=== PATIENT | female | born 1995 | race Caucasian/White ===

== ENCOUNTER 2022-06-29 19:34 | Inpatient (IN) | payer MEDICAID ==
[~2022-06-29] VITALS: Ht 162.6 cm; Wt 144.3 kg
[2022-06-29 20:11] LABS: GLUCOMETER DEV NAME(LOC) POC.BV
[2022-06-29] MEDS ORDERED: INFLUENZA VIRUS VACCINE QVS 2022-23 (6MO+)/PF 60 MCG/0.5 ML SYRINGE IM. ONE (20:30)
[2022-06-29] MEDS ORDERED: HydrOXYzine PAMOATE 50 MG CAPSULE PO PRN (20:30)
[2022-06-29] MEDS ORDERED: ZOLPIDEM TARTRATE 10 MG TABLET PO PRN (20:30)
[2022-06-29] MEDS ORDERED: PROMETHAZINE HCL 25 MG TABLET PO PRN (20:30)
[2022-06-29] MEDS ORDERED: ACETAMINOPHEN 325 MG TABLET PO PRN (20:30)
[2022-06-29] MEDS ORDERED: LOPERAMIDE HCL 2 MG CAPSULE PO PRN (20:30)
[2022-06-29] MEDS ORDERED: MAG HYDROX/AL HYDROX/SIMETH ES 30 ML SUSPENSION UDCUP PO PRN (20:30)
[2022-06-29] MEDS ORDERED: GuaiFENesin/D-METHORPHAN [SUGAR-FREE] 200-20MG/10 ML SYRUP UDCUP PO PRN (20:30)
[2022-06-29] MEDS ORDERED: TUBERCULIN, PURIFIED PROTEIN DERIVATIVE 5 TU/0.1 ML SYRINGE ID ONE (20:30)
[2022-06-29] MEDS ORDERED: OLANZapine 5 MG RAPDIS TABLET PO PRN (20:30)
[2022-06-29] MEDS ORDERED: MAGNESIUM HYDROXIDE SUSPENSION 30 ML UDCUP PO PRN (20:30)
[2022-06-29] MEDS ORDERED: PNEUMOCOCCAL VACCINE POLYVALENT 0.5 ML VIAL [PPSV23] IM. ONE (20:45)
[2022-06-29 20:57] VITALS: BP 125/87
[2022-06-29] MEDS ORDERED: MELATONIN 5 MG TABLET PO SCH (21:00)
[2022-06-29] MEDS ORDERED: OLANZapine 5 MG RAPDIS TABLET PO SCH (21:00)
[2022-06-29] MEDS: LORazepam 2 MG TABLET PO PRN (21:37)
[2022-06-29 23:26] VITALS: BP 113/60
[2022-06-30 07:33] LABS: BASOPHILS % (AUTO) 0.4 % (0.0-2.0); EOSINOPHILS % (AUTO) 3.6 % (1.0-6.0); HEMATOCRIT 38.2 % (36-46); HEMOGLOBIN 12.5 g/dL (12.0-16.0); LYMPHOCYTES # (AUTO) 2.7 K/uL (1.0-4.8); LYMPHOCYTES % (AUTO) 33.9 % (22.0-44.0); MEAN CORPUSCULAR HEMOGLOBIN 29.1 pg (26.0-34.0); MEAN CORPUSCULAR HGB CONC 32.8 G/dL (31.0-37.0); MEAN CORPUSCULAR VOLUME 89 fL (80-100); MONOCYTES # (AUTO) 0.5 K/uL (0.1-1.0); MONOCYTES % (AUTO) 6.7 % (2.0-9.0); NEUTROPHILS # (AUTO) 4.4 K/uL (1.8-7.7); NEUTROPHILS % (AUTO) 55.4 % (40.0-70.0); PLATELET COUNT (AUTO) 239 K/uL (150-450); RED BLOOD CELL COUNT(AUTO) 4.31 MIL/uL (4.00-5.20); RED CELL DISTRIBUTION WIDTH 14.2 % (11.5-14.5)
[2022-06-30 07:49] LABS: HEMOGLOBIN A1C 5.7 % (3.8-5.6)
[2022-06-30 07:53] LABS: ALANINE AMINOTRANSFERASE 39 U/L (12-78); ALBUMIN 3.6 g/dL (3.4-5.0); ALKALINE PHOSPHATASE 93 U/L (46-116); ANION GAP 10 mmol/L (8-16); ASPARTATE AMINOTRANSFERASE 23 U/L (15-37); BILIRUBIN,TOTAL 0.5 mg/dL (0.1-1.0); CALCIUM, TOTAL 9.1 mg/dL (8.8-10.5); CARBON DIOXIDE 26 mmol/L (22-29); CHLORIDE 108 mmol/L (98-107); CHOL/HDL RATIO 5.4 (3.9-5.7); CHOLESTEROL 163 mg/dL (131-200); CREATININE 0.68 mg/dL (0.60-1.30); FREE T4 (FREE THYROXINE) 1.14 ng/dL (0.76-1.46); GLUCOSE,RANDOM 79 mg/dL (70-110); HDL CHOLESTEROL 30 mg/dL (40-60); LDL CHOL (CALC.) 106 mg/dL (0-130); POTASSIUM 3.6 mmol/L (3.5-5.1); SODIUM SERUM 144 mmol/L (136-145); TOTAL PROTEIN, SERUM 7.3 g/dL (6.4-8.2); TRIGLYCERIDES 135 mg/dL (15-150); UREA NITROGEN, BLOOD 11 mg/dL (7-18)
[2022-06-30 07:56] LABS: GLOMERULAR FILTR. RATE CALC > 60 mL/min (>60)
[2022-06-30 08:46] VITALS: BP 134/79
[2022-06-30] MEDS ORDERED: FLUoxetine HCL 20 MG CAPSULE PO SCH (09:00)
[2022-06-30] MEDS: FOLIC ACID 1 MG TABLET PO SCH (09:05)
[2022-06-30] MEDS: MULTIVITAMINS WITH MINERALS, THERAPEUTIC TABLET PO SCH (09:05)
[2022-06-30] MEDS: NALTREXONE HCL 50 MG TABLET PO SCH (09:05)
[2022-06-30] MEDS: OMEGA-3/DHA/EPA/FISH OIL 1,000 MG CAPSULE PO SCH (09:05)
[2022-06-30] MEDS: LORazepam 2 MG TABLET PO PRN (09:05)
[2022-06-30] MEDS: THIAMINE 100 MG TABLET PO SCH ×2 (09:05→16:40)
[2022-06-30] MEDS ORDERED: ZALEPLON 5 MG CAPSULE PO PRN (15:15)
[2022-06-30] MEDS: ALBUTEROL SULFATE HFA 90 MCG/PUFF 8 GM INHALER IH PRN (17:52)
[2022-06-30 20:10] VITALS: BP 123/78
[2022-06-30] MEDS: OLANZapine 10 MG RAPDIS TABLET PO SCH (20:39)
[2022-07-01] MEDS: ALBUTEROL SULFATE HFA 90 MCG/PUFF 8 GM INHALER IH PRN (06:51)
[2022-07-01 08:12] VITALS: BP 136/79
[2022-07-01] MEDS: OMEGA-3/DHA/EPA/FISH OIL 1,000 MG CAPSULE PO SCH (09:22)
[2022-07-01] MEDS: THIAMINE 100 MG TABLET PO SCH ×2 (09:22→17:07)
[2022-07-01] MEDS: NALTREXONE HCL 50 MG TABLET PO SCH (09:23)
[2022-07-01] MEDS: FOLIC ACID 1 MG TABLET PO SCH (09:23)
[2022-07-01] MEDS: BuPROPion HCL XL 150 MG ER TABLET PO SCH (09:23)
[2022-07-01] MEDS: MULTIVITAMINS WITH MINERALS, THERAPEUTIC TABLET PO SCH (09:23)
[2022-07-01] MEDS: LORazepam 2 MG TABLET PO PRN (12:08)
[2022-07-01 20:38] VITALS: BP 150/82
[2022-07-01] MEDS: OLANZapine 10 MG RAPDIS TABLET PO SCH (20:57)
[2022-07-02] MEDS ORDERED: LORazepam 1 MG TABLET PO PRN (00:30)
[2022-07-02 08:22] VITALS: BP 133/94
[2022-07-02] MEDS: ALBUTEROL SULFATE HFA 90 MCG/PUFF 8 GM INHALER IH PRN (08:30)
[2022-07-02] MEDS: NALTREXONE HCL 50 MG TABLET PO SCH (09:13)
[2022-07-02] MEDS: THIAMINE 100 MG TABLET PO SCH (09:13)
[2022-07-02] MEDS: BuPROPion HCL XL 150 MG ER TABLET PO SCH (09:13)
[2022-07-02] MEDS: MULTIVITAMINS WITH MINERALS, THERAPEUTIC TABLET PO SCH (09:13)
[2022-07-02] MEDS: OMEGA-3/DHA/EPA/FISH OIL 1,000 MG CAPSULE PO SCH (09:13)
[2022-07-02] MEDS: FOLIC ACID 1 MG TABLET PO SCH (09:13)
[2022-07-02] MEDS ORDERED: OLAN5TAB94 PO (15:22)
[2022-07-02] MEDS ORDERED: MELA5TAB40 PO (15:22)
[2022-07-02] MEDS ORDERED: OMEG-135 PO (15:22)
[2022-07-02] MEDS ORDERED: NALT50TA PO (15:22)
[2022-07-02] MEDS ORDERED: BUPR-49 PO (15:22)
[2022-07-02] MEDS ORDERED: OLANZapine 5 MG RAPDIS TABLET PO SCH (21:00)
== END 2022-07-02 16:00 | disposition home or self-care (01) | DRG 750 ==
LOC: B2S 20:14
PROVIDERS: ADMIT Psychiatry & Neurology Psychiatry; ATTEND Psychiatry & Neurology Psychiatry
PROC: 3E0234Z Introduction of Serum, Toxoid and Vaccine into Muscle, Percutaneous Approach (ICD-10-PCS; principal; 2022-06-29)
PROC: 3E02340 Introduction of Influenza Vaccine into Muscle, Percutaneous Approach (ICD-10-PCS; 2022-06-29)
DX: F25.9 Schizoaffective disorder, unspecified (principal); Z68.43 Body mass index [BMI] 50.0-59.9, adult; Z91.14 Patient's other noncompliance with medication regimen; E66.01 Morbid (severe) obesity due to excess calories; Z20.822 Contact with and (suspected) exposure to COVID-19; F12.10 Cannabis abuse, uncomplicated; F17.210 Nicotine dependence, cigarettes, uncomplicated; F31.9 Bipolar disorder, unspecified; I10 Essential (primary) hypertension; J44.9 Chronic obstructive pulmonary disease, unspecified; Z55.9 Problems related to education and literacy, unspecified; Z59.9 Problem related to housing and economic circumstances, unspecified; Z63.9 Problem related to primary support group, unspecified; Z65.3 Problems related to other legal circumstances; Z81.8 Family history of other mental and behavioral disorders; Z91.52 Personal history of nonsuicidal self-harm; Z23 Encounter for immunization; Z79.899 Other long term (current) drug therapy
CPT/HCPCS: 80053; 80061; 83036; 84439; 84702; 85025; 86592; 90686; 90732; J3535; Q9967